=== PATIENT | female | born 2005 | race Caucasian/White ===

== ENCOUNTER 2025-01-09 10:52 | Emergency (ER) | payer SELFPAY ==
[2025-01-09 12:10] LABS: Glucose, Urine (Dipstick) Normal (Negative); Leukocyte 25 (Negative); Protein, Urine (Dipstick) 30 mg/dl (Neg-Trace); Specific Gravity, Urine 1.025 (1.005-1.030)
[2025-01-09 12:11] LABS: Pregnancy Test - Urine (BHCG) Negative (Negative); Pregu Control Bar Appear? YES (CONTROL BAR)
[2025-01-09 12:12] LABS: Pregu Control Background? CLEAR/WHITE (CLR/WHITE)
[2025-01-09 12:17] LABS: Bacteria/HPF 1+ HPF (None Seen); CAUTI Indications for Culture Pregnancy; RBC/HPF Greater than 50 HPF (0-3); WBC/HPF 0-3 HPF (0-3)
[2025-01-09 12:18] LABS: Urine Culture Reflex Yes Yes
[2025-01-09 14:02] LABS: #Basophils 0.05 10x3/uL (0.0-0.2); #Eosinophils Less than 0.03 10x3/uL (0.0-0.5); #Monocytes 0.32 10x3/uL (0.0-1.1); #Neutrophils 4.04 10x3/uL (1.5-8.4); %Basophils 0.8 % (0.0-2.0); %Eosinophils 0.2 % (0.0-6.0); %Lymphocytes 28.4 % (18.0-47.0); %Monocytes 5.2 % (0.0-10.0); %Neutrophils 65.1 % (40.0-75.0); Hematocrit 44.1 % (34.9-44.5); Hemoglobin 14.5 g/dL (12.0-15.5); Mean Corpuscular Hemoglobin 28.6 pg (27.0-33.0); Mean Corpuscular Volume 87.0 fL (81.6-98.3); Platelet Count 304 10x3/uL (150-450); Red Blood Cell (RBC) Count 5.07 10x6/uL (3.90-5.03); White Blood Cell (WBC) Count 6.20 10x3/uL (3.5-10.5)
[2025-01-09] MEDS ORDERED: Droperidol 5 MG/2 ML VIAL ONE (14:04)
[2025-01-09 14:16] LABS: ALT (SGPT) 14 U/L (Less than 34); AST (SGOT) 17 U/L (11-34); Albumin 4.5 g/dL (3.1-4.5); Alkaline Phosphatase 62 U/L (40-100); Anion Gap 13 mmol/L (10-20); BUN (Urea Nitrogen) 12 mg/dL (7.0-18.7); Bilirubin, Total 0.7 mg/dL (0.3-1.2); Calc. Creatinine Clearance 0 mL/min (70-130); Calcium 9.3 mg/dL (7.8-10.44); Carbon Dioxide 24 mmol/L (22-29); Chloride 107 mmol/L (98-107); Globulin 3.2 g/dL (2.4-3.5); Glucose 101 mg/dL (70-105); Lipase 21 U/L (8-78); Potassium 3.9 mmol/L (3.5-5.1); Sodium 140 mmol/L (136-145)
== END 2025-01-09 15:05 | disposition home or self-care (01) ==
LOC: CSHERS 10:52
DX: N94.6 Dysmenorrhea, unspecified (principal); E86.9 Volume depletion, unspecified
CPT/HCPCS: 36415; 80053; 81001; 81025; 83605; 83690; 85025; 87086; 93005; 96361; 96374; J1790